=== PATIENT | female | born 1975 | race Caucasian/White ===

== ENCOUNTER → 2017-05-15 | Outpatient (CLI) | payer OTHER ==
[~2017-05-15] MED LIST: CETI10TA84 PO; EST1 PO; FLUT0.15 NAE; MONT1TAB3 PO; OPTIRAY 320 IV PRN; PRLSR20 PO; TRAM-10 PO; [UNRECOGNIZED DRUG - REMARK] SQ
--- NOTE | 2017-05-15 11:51 | DIAGNOSTIC IMAGING REPORT ---
ABDOMEN AND PELVIS CT WITH IV AND ORAL CONTRAST CT DOSE: 385.51 mGy.cm HISTORY: Right upper quadrant abdominal pain. TECHNIQUE: Multiaxial CT images of the abdomen and pelvis were performed following the use of intravenous and oral contrast. A dose lowering technique was utilized adhering to the principles of ALARA. COMPARISON STUDY: Chest abdomen series 10/04/2015. Abdominal ultrasound 07/08/2015. FINDINGS: The lung bases are clear. The spleen, gallbladder, pancreas, and adrenal glands are within normal limits. No bowel wall thickening or obstruction. No suspicious lytic or blastic osseous lesions. Hysterectomy. Normal appendix. Tiny fat-containing umbilical hernia. There may be mild bladder wall thickening. 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 A 1.5 cm hypodense lesion within the left hepatic lobe. This likely represents a cyst. A 3 mm hypodense lesion within the left kidney is too small to characterize but also favors a cyst. 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 IMPRESSION: 1. No bowel wall thickening or obstruction. 2. Hysterectomy. 3. Questionable mild bladder wall thickening. Recommend correlation with urinalysis to exclude a cystitis. 4. Normal appendix. Electronically signed by: Elier Roberts M.D. 05/15/2017 11:50 AM Dictated Date/Time: 05/15/2017 11:30 AM
== END | disposition home or self-care (01) ==
LOC: C.CTS 10:21
PROVIDERS: ATTEND Physician Assistant
DX: R10.11 Right upper quadrant pain (principal); Z90.710 Acquired absence of both cervix and uterus

== ENCOUNTER → 2017-05-16 | Outpatient (CLI) | payer OTHER ==
[~2017-05-16] MED LIST changes: -OPTIRAY 320 IV PRN
--- NOTE | 2017-05-16 13:04 | DIAGNOSTIC IMAGING REPORT ---
NUCLEAR GASTRIC EMPTYING STUDY CLINICAL HISTORY: Generalized abdominal pain. COMPARISON STUDY: Abdominal CT dated 05/15/2017. TECHNIQUE: Following the oral administration of 1.073 mCi of technetium 99m sulfur colloid in egg sandwich and 8 ounces of water, static abdominal images are obtained anteriorly and posteriorly at 0 minutes, 1 hour, 2 hour, and 4 hour time intervals. Gastric emptying was calculated utilizing the geometric mean method. FINDINGS: There is approximately 84% activity remaining at the 1 hour time interval, 63% remaining at the 2 hour time interval (normal is less than 60%), and 31% activity remaining at the 4 hour time interval (normal is less than 10%). IMPRESSION: Findings are consistent with mildly delayed gastric emptying for solids. Electronically signed by: Te Alcala M.D. 05/16/2017 1:03 PM Dictated Date/Time: 05/16/2017 1:02 PM
[2017-05-19 20:35] LABS: IGA SERUM 143 mg/dL (81-463); TIS TRANS IGA 1 U/mL (<4)
== END | disposition home or self-care (01) ==
LOC: C.NUCL 08:19
PROVIDERS: ATTEND Physician Assistant
DX: R10.11 Right upper quadrant pain (principal)

== ENCOUNTER 2017-08-26 12:11 | Emergency (ER) | payer OTHER ==
[~2017-08-26] VITALS: Ht 157.5 cm; Wt 76.8 kg
[2017-08-26 12:14] VITALS: Ht 157.5 cm; Wt 76.8 kg
--- NOTE | 2017-08-26 12:53 | EMERGENCY ROOM VISIT NOTE ---
History Report prepared by Kamran: Geetha Gonzalez Under the Supervision of: Dr. Te Langford M.D. First contact with patient: 12:27 Chief Complaint: CONSTIPATION Stated Complaint: CONSTIPATION, BLOATING, R SIDE PAIN Nursing Triage Summary: pt c/o constipation for 1 week. several small bm's today. pt states stool soft. pt states blood in stool yesturday. 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 She notes that she has never had constipation before, though she has a history of gastroparesis. She reports eating regularly, though within 20 minutes of consumption she experiences right-sided abdominal pain and increased bloating, gas, and burping. She currently rates her pain a 4/10 in severity. She notes that she is able to pass small bowel movements, though they are not "enough." She also notes there was blood in her stool yesterday. She notes a baseline of polyuria. She tried Miralax last night, though her symptoms have not improved. She denies any vomiting, diarrhea, and dysuria. She notes eating smaller meals throughout the day and takes probiotics regularly. 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 She notes baseline polyuria. She notes blood in stools. Review of Systems See HPI for pertinent positives & negatives. A total of 10 systems reviewed and were otherwise negative. Past Medical & Surgical Medical Problems: (1) Heart disease (2) Migraine Surgical Problems: (1) H/O: hysterectomy Family History Cancer Diabetes mellitus Heart disease Hypertension Lung disease Social History Smoking Status: Never Smoker Alcohol Use: occasionally Drug Use: none Marital Status: Housing Status: lives with family Occupation Status: employed Current/Historical Medications Scheduled Estradiol (Estradiol), 1 MG PO QAM Montelukast Sodium (Singulair), 10 MG PO DAILY Sennosides-Docusate Sodium (Senokot S), 2 TAB PO BID Sennosides-Docusate Sodium (Senokot S), 2 TAB PO BID Scheduled PRN Cetirizine (Zyrtec), 10 MG PO DAILY PRN for ALLERGIC REACTION Fluticasone Propionate (Nasal) (Flonase Allergy Relief), 1 SPRAY MANDY BID PRN for Nasal Congestion Allergies Coded Allergies: Codeine (Verified Allergy, Unknown, UNKNOWN, 08/26/17) Gabapentin (Verified Allergy, Unknown, UNKNOWN, 08/26/17) Penicillins (Verified Allergy, Unknown, 08/26/17) Unclassified Drugs (Verified Adverse Reaction, Mild, WOOL = ITCHY, ) Physical Exam Vital Signs Date Time Temp Pulse Resp B/P (MAP) Pulse Ox O2 Delivery O2 Flow Rate FiO2 08/26/17 14:14 36.6 73 18 105/68 98 Room Air 08/26/17 12:14 36.7 90 20 128/85 97 Room Air Physical Exam GENERAL: Patient is in no acute distress. HEENT: No acute trauma, normocephalic atraumatic, mucous membranes moist, no nasal congestion, no scleral icterus. NECK: No stridor, no adenopathy, no meningismus, trachea is midline. LUNGS: Clear to auscultation bilaterally, no wheeze, no rhonchi, breath sounds equal. HEART: Without murmurs gallops or rubs, regular rate and rhythm. ABDOMEN: Soft, tender along entire right side of the abdomen, bowel sounds positive, no hernias, no peritonitis. RECTAL: No stool in the rectal vault, no evidence for perirectal abscess or mass. EXTREMITIES: No cyanosis or edema, full range of motion of all the joints without pain or difficulty, no signs for acute trauma. NEUROLOGIC: Oriented x 3, no acute motor or sensory deficits, no focal weakness. SKIN: No rash, no jaundice, no diaphoresis. Medical Decision & Procedures ER Provider Diagnostic Interpretation: Radiology results as stated below per my review and radiologist interpretation: ABDOMEN 2VIEW W/PA CHEST RTN CLINICAL HISTORY: 41 years-old Female presenting with ABDOMINAL PAIN/GI. TECHNIQUE: PA view of the chest and supine and upright views of the abdomen were obtained. COMPARISON: 10/04/2015. FINDINGS: Cardiomediastinal silhouette normal. Lungs and pleural spaces clear. Normal bowel gas pattern. No evidence of free intraperitoneal gas, pneumatosis, or portal venous gas. Surgical material noted in the right lower quadrant. Scattered surgical clips in the pelvis. Allowing for bowel gas and stool calcifications to suggest nephrolithiasis. Stable appearance of the pelvic phleboliths. Osseous structures normal. IMPRESSION: 1. No acute cardiopulmonary disease. 2. No radiographic evidence of acute intra-abdominal pathology. Electronically signed by: Nolan Calhoun M.D. 08/26/2017 1:28 PM Dictated Date/Time: 08/26/2017 1:26 PM Laboratory Results 08/26/17 12:55 Red Blood Count 4.16, Mean Corpuscular Volume 90.4, Mean Corpuscular Hemoglobin 31.3, Mean Corpuscular Hemoglobin Concent 34.6, Mean Platelet Volume 9.2, Neutrophils (%) (Auto) 50.1, Lymphocytes (%) (Auto) 41.0, Monocytes (%) (Auto) 7.5, Eosinophils (%) (Auto) 1.0, Basophils (%) (Auto) 0.3, Neutrophils # (Auto) 3.66, Lymphocytes # (Auto) 3.00, Monocytes # (Auto) 0.55, Eosinophils # (Auto) 0.07, Basophils # (Auto) 0.02 08/26/17 12:55 Test 08/26/17 12:47 08/26/17 12:55 Urine Color YELLOW Urine Appearance CLEAR (CLEAR) Urine pH 6.0 (4.5-7.5) Urine Specific Tripp 1.011 (1.000-1.030) Urine Protein NEG (NEG) Urine Glucose (UA) NEG (NEG) Urine Ketones NEG (NEG) Urine Occult Blood NEG (NEG) Urine Nitrite NEG (NEG) Urine Bilirubin NEG (NEG) Urine Urobilinogen NEG (NEG) Urine Leukocyte Esterase NEG (NEG) White Blood Count 7.31 K/uL (4.8-10.8) Red Blood Count 4.16 M/uL (4.2-5.4) Hemoglobin 13.0 g/dL (12.0-16.0) Hematocrit 37.6 % (37-47) Mean Corpuscular Volume 90.4 fL (80-100) Mean Corpuscular Hemoglobin 31.3 pg (25-34) Mean Corpuscular Hemoglobin Concent 34.6 g/dl (32-36) Platelet Count 166 K/uL (130-400) Mean Platelet Volume 9.2 fL (7.4-10.4) Neutrophils (%) (Auto) 50.1 % Lymphocytes (%) (Auto) 41.0 % Monocytes (%) (Auto) 7.5 % Eosinophils (%) (Auto) 1.0 % Basophils (%) (Auto) 0.3 % Neutrophils # (Auto) 3.66 K/uL (1.4-6.5) Lymphocytes # (Auto) 3.00 K/uL (1.2-3.4) Monocytes # (Auto) 0.55 K/uL (0.11-0.59) Eosinophils # (Auto) 0.07 K/uL (0-0.5) Basophils # (Auto) 0.02 K/uL (0-0.2) RDW Standard Deviation 45.2 fL (36.4-46.3) RDW Coefficient of Variation 13.7 % (11.5-14.5) Immature Granulocyte % (Auto) 0.1 % Immature Granulocyte # (Auto) 0.01 K/uL (0.00-0.02) Anion Gap 8.0 mmol/L (3-11) Est Creatinine Clear Calc Drug Dose 108.2 ml/min Estimated GFR () 128.3 Estimated GFR (Non- 110.7 BUN/Creatinine Ratio 28.6 (10-20) Calcium Level 8.2 mg/dl (8.5-10.1) Total Bilirubin 0.4 mg/dl (0.2-1) Aspartate Amino Transf (AST/SGOT) 22 U/L (15-37) Alanine Aminotransferase (ALT/SGPT) 39 U/L (12-78) Alkaline Phosphatase 55 U/L (45-117) Total Protein 7.2 gm/dl (6.4-8.2) Albumin 3.6 gm/dl (3.4-5.0) Globulin 3.6 gm/dl (2.5-4.0) Albumin/Globulin Ratio 1.0 (0.9-2) Lipase 154 U/L (73-393) Laboratory results reviewed by me. Medications Administered Medications (Trade) Dose Ordered Sig/Peace Route Start Time Stop Time Status Last Admin Dose Admin Senna/Docusate Sodium (Senokot S Tab) 2 tab NOW ONCE PO 08/26/17 14:15 08/26/17 14:16 DC 08/26/17 14:16 2 TAB ED Course 1229: The patient was evaluated in room B9. A complete history and physical exam was performed. 1405: I reassessed the patient at this time. I performed a rectal exam with a female fuel cell repairer present. Please see rectal exam note. 1411: I reassessed the patient at this time. She is feeling better and resting comfortably. I discussed the results and treatment plan with the patient. I answered all pertaining questions that she had. She expressed understanding and verbalized agreement. The patient will be discharged home. 1415: Ordered Senokot 2 tab PO Medical Decision The patient is a 41 year old female who presents to the ED with complaints of persistent constipation. Differential diagnoses considered include constipation , gastric emptying delay, UTI, musculoskeletal pain, diverticulitis, appendicitis, and gallbladder disease. There is no leukocytosis or concerning anemia. No significant electrolyte abnormality, kidney failure, hepatitis or pancreatitis. Urinalysis does not show evidence for infection. Abdominal series shows stool throughout the entire colon, there is no bowel obstruction or pneumonia. On exam, no stool in the rectal vault, no evidence for perirectal abscess, no rectal mass. No peritonitis by my abdominal exam, the patient was not febrile or toxic. The patient is likely somewhat constipated. She is having difficulty moving her bowels. I think she can be discharged on increased Miralax and maybe some additional Senokot. If worsening, she can return. She was encouraged to stay well hydrated. Medication Reconcilliation Current Medication List: was personally reviewed by me Blood Pressure Screening Patient's blood pressure: Elevated blood pressure Blood pressure disposition: Elevated BP felt to be situational Impression Primary Impression: Constipation Scribe Attestation The scribe's documentation has been prepared under my direction and personally reviewed by me in its entirety. I confirm that the note above accurately reflects all work, treatment, procedures, and medical decision making performed by me. Departure Information Dispostion Home / Self-Care Prescriptions Sennosides-Docusate Sodium (SENOKOT S) 1 Tab Tab 2 TAB PO BID, #30 TAB 3 Refills Prov: Te Langford M.D. 08/26/17 Sennosides-Docusate Sodium (SENOKOT S) 1 Tab Tab 2 TAB PO BID, #30 TAB 3 Refills Prov: Te Langford M.D. 08/26/17 Referrals No Doctor, Assigned (PCP) Forms HOME CARE DOCUMENTATION FORM, IMPORTANT VISIT INFORMATION Patient Instructions My [facility] Additional Instructions stay well hydrated miralax 1 heaping capfull in 8 oz of liquid every1-2 hours until start having bowel movements use senokot 2 tab 3x per day to help bowel movements--back off to 1-2 tab daily as a maintenance dose return if worsening
[2017-08-26 13:10] LABS: URINE APPEARANCE CLEAR (CLEAR); URINE BILIRUBIN NEG (NEG); URINE COLOR YELLOW; URINE NITRITE NEG (NEG); URINE SPECIFIC GRAVITY 1.011 (1.000-1.030); UROBILINOGEN NEG (NEG); ZZUR CULT IF INDIC CLEAN CATCH NO
[2017-08-26 13:18] LABS: MANUAL MICROSCOPIC REQUIRED? NO; REVIEW REQ? NO
[2017-08-26 13:20] LABS: BASO % 0.3 %; BASO ABS # 0.02 K/uL (0-0.2); COMPLETE YES; HEMATOCRIT 37.6 % (37-47); IG% 0.1 %; MEAN CELL VOLUME 90.4 fL (80-100); MEAN CORPUSCULAR HEMOGLOBIN 31.3 pg (25-34); MEAN CORPUSCULAR HGB CONC 34.6 g/dl (32-36); MEAN PLATELET VOLUME 9.2 fL (7.4-10.4); MONO % 7.5 %; NEUT % 50.1 %; PLATELET COUNT 166 K/uL (130-400); RED BLOOD COUNT 4.16 M/uL (4.2-5.4); WHITE BLOOD COUNT 7.31 K/uL (4.8-10.8)
--- NOTE | 2017-08-26 13:29 | DIAGNOSTIC IMAGING REPORT ---
ABDOMEN 2VIEW W/PA CHEST RTN CLINICAL HISTORY: 41 years-old Female presenting with ABDOMINAL PAIN/GI. TECHNIQUE: PA view of the chest and supine and upright views of the abdomen were obtained. COMPARISON: 10/04/2015. FINDINGS: Cardiomediastinal silhouette normal. Lungs and pleural spaces clear. Normal bowel gas pattern. No evidence of free intraperitoneal gas, pneumatosis, or portal venous gas. Surgical material noted in the right lower quadrant. Scattered surgical clips in the pelvis. Allowing for bowel gas and stool calcifications to suggest nephrolithiasis. Stable appearance of the pelvic phleboliths. Osseous structures normal. IMPRESSION: 1. No acute cardiopulmonary disease. 2. No radiographic evidence of acute intra-abdominal pathology. Electronically signed by: Nolan Calhoun M.D. 08/26/2017 1:28 PM Dictated Date/Time: 08/26/2017 1:26 PM
[2017-08-26 14:01] LABS: BUN/CREATININE RATIO 28.6 (10-20); CALCIUM 8.2 mg/dl (8.5-10.1); CREATININE 0.67 mg/dl (0.60-1.20); POTASSIUM 3.6 mmol/L (3.5-5.1)
[2017-08-26 14:14] VITALS: BP 105/68; PULSE 73; TEMP 36.6; O2SAT 98
[2017-08-26] MEDS ORDERED: SENN-65 PO ×2 (14:14→14:36)
[2017-08-26] MEDS ORDERED: DOCUSATE SODIUM/SENNA 50/8.6MG TAB PO ONE (14:15)
== END 2017-08-26 14:42 | disposition home or self-care (01) ==
LOC: C.EDB 12:13
DX: K59.00 Constipation, unspecified (principal); I51.9 Heart disease, unspecified; Z90.710 Acquired absence of both cervix and uterus; Z79.899 Other long term (current) drug therapy; Z88.0 Allergy status to penicillin; Z88.5 Allergy status to narcotic agent; Z80.9 Family history of malignant neoplasm, unspecified; Z83.3 Family history of diabetes mellitus; Z82.49 Family history of ischemic heart disease and other diseases of the circulatory system

== ENCOUNTER 2017-08-30 23:35 | Emergency (ER) | payer OTHER ==
[~2017-08-30] VITALS: Ht 157.5 cm; Wt 75.2 kg
[~2017-08-30 23:35] MED LIST changes: -PRLSR20 PO; +SENN-65 PO; -TRAM-10 PO; -[UNRECOGNIZED DRUG - REMARK] SQ
[2017-08-30 23:39] VITALS: TEMP 36.6; Ht 157.5 cm; Wt 75.2 kg
[2017-08-30] MEDS ORDERED: KETOROLAC TROMETHAMINE 30 MG/ML VIAL IV STA (23:51)
[2017-08-30] MEDS ORDERED: METOCLOPRAMIDE HCL INJ 5 MG/ML 2 ML VIAL IV STA (23:51)
[2017-08-30] MEDS ORDERED: DiphenhydrAMINE HCL 50 MG/ML VIAL IV STA (23:51)
[2017-08-30] MEDS ORDERED: LACTATED RINGER'S 1000ML 1,000 ML IV STA (23:51)
[2017-08-31 00:55] VITALS: BP 125/70; PULSE 95; O2SAT 95
--- NOTE | 2017-08-31 01:02 | EMERGENCY ROOM VISIT NOTE ---
History First contact with patient: 23:41 Chief Complaint: HEADACHE Stated Complaint: R-SIDE PAIN,THROWING UP History of Present Illness The patient is a 42 year old female who presents to the Emergency Room with complaints of migraine for the past few hours described as throbbing, ranging in severity 8 out of 10 throughout the right frontal region similar to prior. Patient has been having chronic intermittent sinus problems for over 2 years now. She follows at Dr. Marie from [place]. She had a brain MRI last week that was unremarkable and CT of the sinuses but does not know the results of the sinuses. Patient denies numbness, tingling, sudden onset of headache, localized weakness, chest pain, dyspnea, cold symptoms, sore throat, neck stiffness. Patient does complain of photophobia and nausea and vomiting. Review of Systems See HPI for pertinent positives & negatives. A total of 10 systems reviewed and were otherwise negative. Past Medical/Surgical History Medical Problems: (1) Heart disease (2) Migraine Surgical Problems: (1) H/O: hysterectomy Family History Cancer Diabetes mellitus Heart disease Hypertension Lung disease Social History Smoking Status: Never Smoker Alcohol Use: occasionally Drug Use: none Marital Status: Housing Status: lives with family Occupation Status: employed Current/Historical Medications Scheduled Estradiol (Estradiol), 1 MG PO QAM Montelukast Sodium (Singulair), 10 MG PO DAILY Sennosides-Docusate Sodium (Senokot S), 2 TAB PO BID Scheduled PRN Cetirizine (Zyrtec), 10 MG PO DAILY PRN for ALLERGIC REACTION Fluticasone Propionate (Nasal) (Flonase Allergy Relief), 1 SPRAY MANDY BID PRN for Nasal Congestion Physical Exam Vital Signs Date Time Temp Pulse Resp B/P (MAP) Pulse Ox O2 Delivery O2 Flow Rate FiO2 08/31/17 00:55 95 20 125/70 95 08/30/17 23:39 36.6 103 20 129/77 95 Room Air Physical Exam VITALS: Vitals are noted on the nurse's note and reviewed by myself. Vital signs mildly tachycardic GENERAL: Pleasant female, in no acute distress, nondiaphoretic, well-developed well-nourished. SKIN: The skin was without rashes, erythema, edema, or bruising. There is no tenting of the skin. Capillary reflex less than 2 seconds. HEAD: Normocephalic atraumatic. EARS: External auditory canals clear, tympanic membranes pearly kang without erythema or effusion bilaterally. EYES: Pupils equal round and reactive to light and accommodation. Conjunctivae without injection, sclerae without icterus. Extraocular movements intact. NOSE: Patent, turbinates without inflammation or discharge. No sinus tenderness. MOUTH: Mucous membranes mild dry. Pharynx without erythema or exudate. Uvula midline. Airway patent. Tongue does not deviate. NECK: Supple without nuchal rigidity. No lymphadenopathy. No thyromegaly. Cervical spine is nontender. No JVD. No meningeal signs HEART: Regular rate and rhythm without murmurs gallops or rubs. LUNGS: Clear to auscultation bilaterally without wheezes, rales or rhonchi. No dullness to percussion. No retractions or accessory muscle use. ABDOMEN: Positive bowel sounds x 4. Normal tympanic percussion. Soft, nontender, without masses or organomegaly. Maravilla sign negative. No guarding or rebound tenderness. MUSCULOSKELETAL: No muscle atrophy, erythema, or edema noted. NEURO: Patient was alert and oriented to person place and time. Normal sensation to light and sharp touch. No focal neurological deficits. Medical Decision & Procedures Medications Administered Medications (Trade) Dose Ordered Sig/Peace Route Start Time Stop Time Status Last Admin Dose Admin Ketorolac Tromethamine (Toradol Inj) 30 mg NOW STAT IV 08/30/17 23:51 08/30/17 23:55 DC 08/31/17 00:13 30 MG Metoclopramide HCl (Reglan Inj) 10 mg NOW STAT IV 08/30/17 23:51 08/30/17 23:55 DC 08/31/17 00:13 10 MG Diphenhydramine HCl (Benadryl Inj) 25 mg NOW STAT IV 08/30/17 23:51 08/30/17 23:55 DC 08/31/17 00:13 25 MG Lactated Ringer's 1,000 ml @ 0 mls/hr Q0M STAT IV 08/30/17 23:51 08/30/17 23:55 DC 08/31/17 00:14 999 MLS/HR ED Course Prior records/ancillary studies reviewed. Additional history obtained from family. Triage Nursing notes reviewed. The patient's history was concerning for headache. Differential diagnosis: Etiologies such as migraine headache, meningitis, sinusitis, CO exposure, ICH, SAH, infection, tumor, headache, sinus thrombosis, arterial dissection, as well as others were entertained. Physical examination findings: As above. Non-focal. ER treatment provided: Toradol, Reglan, Benadryl, IV fluids On reassessment the patient felt better. Diagnostics interpreted by me: Imaging studies: CT was reviewed of the sinuses that was obtained from [facility] shows mild chronic inflammation of the sphenoid sinuses and mild chronic inflammation of the right maxillary sinuses. This appears to be consistent with migraine. Patient was neurovascularly and neurologically intact. She is well-appearing. She felt much better to be medicated as above. Symptoms were not sudden in onset. She is advised to follow-up with her ENT and family doctor in a few days or here in the ER sooner for adequate, fevers, neck stiffness, worsening signs or symptoms or as needed. By the evaluation outlined above emergent etiologies such as meningitis, sinusitis, CO exposure, ICH, SAH, infection, temporal arteritis, tumor, sinus thrombosis, arterial dissection, as well as others were deemed relatively unlikely. The pt informed about the findings as listed above. All questions were answered and pleased with the treatment. Return instructions were outlined and the patient was discharged in stable condition. Referral: The patient was referred back to their primary care physician for follow-up in 2 to 3 days for a recheck of the current condition. Medical Decision As above Medication Reconcilliation Current Medication List: was personally reviewed by me Blood Pressure Screening Patient's blood pressure: Normal blood pressure Impression Primary Impression: Migraine Departure Information Dispostion Home / Self-Care Condition GOOD Referrals Terrell Conte M.D. (PCP) Forms HOME CARE DOCUMENTATION FORM, IMPORTANT VISIT INFORMATION Patient Instructions Headaches Migraine and Tension, My [facility] Additional Instructions DO NOT drive, drink alcohol, operate machinery, or perform dangerous activities today. You were given medications in the ER that can affect your ability to safely function or operate a vehicle. Rest today in a quiet, peaceful, dark environment and get a full 8-10 hrs of sleep tonight. Avoid loud noises, smoke/smoking, alcohol, bright lights, stress, or physical exertion today to minimize the chance the headache may return. Continue current medications. Ibuprofen(Motrin, Advil) may be used for fever or pain. Use 600mg every six hours as needed. Take with food. Avoid using more than 2400mg in a 24 hour period. Do not use 2400mg per day for more than three consecutive days without physician direction. Prolonged inappropriate use can lead to stomach upset or ulcers. (AND/OR) Acetaminophen(Tylenol) may be used for fever or pain. Use 1000mg every six hours as needed. Avoid using more than 3000mg in a 24 hour period. Return to the ER for passing out, worsening headache, vision problems, neck stiffness/pain, fevers, vomiting, worsening of your condition, or as needed. Follow up with your primary physician and/or a neurologist in 2-3 days for a recheck of your current condition. Problem Qualifiers Primary Impression: Migraine Migraine type: without aura Status migrainosus presence: without status migrainosus Intractability: not intractable Qualified Codes: G43.009 - Migraine without aura, not intractable, without status migrainosus
== END 2017-08-31 00:56 | disposition home or self-care (01) ==
LOC: C.ED 23:37 → C.EDA 08-31 00:56
DX: G43.909 Migraine, unspecified, not intractable, without status migrainosus (principal); R11.2 Nausea with vomiting, unspecified

== ENCOUNTER → 2018-04-09 | Outpatient (CLI) | payer OTHER ==
[2018-04-09 17:38] LABS: HEMATOCRIT 41.5 % (37-47); HEMOGLOBIN 14.7 g/dL (12.0-16.0); MEAN CELL VOLUME 86.1 fL (80-100); MEAN CORPUSCULAR HEMOGLOBIN 30.5 pg (25-34); MEAN CORPUSCULAR HGB CONC 35.4 g/dl (32-36); MEAN PLATELET VOLUME 9.6 fL (7.4-10.4); PLATELET COUNT 222 K/uL (130-400); RED CELL DISTRIBUTION WIDTH CV 13.1 % (11.5-14.5); RED CELL DISTRIBUTION WIDTH SD 41.1 fL (36.4-46.3); WHITE BLOOD COUNT 9.78 K/uL (4.8-10.8)
[2018-04-09 17:59] LABS: CREATININE 0.81 mg/dl (0.60-1.20)
== END | disposition home or self-care (01) ==
LOC: C.LAB1850 16:05
PROVIDERS: ATTEND Obstetrics & Gynecology
DX: R10.11 Right upper quadrant pain (principal)